=== PATIENT | male | born 1960 | race Caucasian/White ===

== ENCOUNTER 2017-01-21 22:32 | Emergency (ER) | payer BC ==
--- NOTE | ~2017-01-21 | US85 ---
[facility] A Service of [facility] RADIOLOGY TEXT RESULTS PATIENT: FLORECITA HELM LOCATION: SED : 64 UNIT #: [id number] AGE: [address]: Milo Beckwith MD SEX: M ORDER DR: [id number] [place] [id number] E MR#: [id number] Acc #: [id number] NAME: FLORECITA HELM : 1960 SEX: M STUDY DATE/TIME: 01/21/2017 23:22 UNIT: SED ROOM: STUDY DESCRIPTION: [facility] [employer] Attending Physician: Milo Beckwith M.D. Ordering Physician: Milo Beckwith M.D. Primary Care Physician: Rojelio Morgan D.O. MEDICAL IMAGING REPORT This report is preliminary unless electronic signature is present. EXAM Left lower extremity venous Doppler INDICATIONS Left calf pain and swelling today. PROCEDURE badillo-scale, color Doppler, spectral imaging deep veins left leg. COMPARISON None. FINDINGS Deep veins in the left leg compress normally, show normal color Doppler and spectral characteristics. There is a 4.9 x 1.0 x 2.8 cm left popliteal fossa cyst. IMPRESSION 1. No evidence for DVT in the left leg. 2. Popliteal cyst on the left, measuring up to 4.9 cm. 1. Dictated by... Bernardino Espinal M.D. THIS IS AN ELECTRONICALLY VERIFIED REPORT Bernardino Espinal M.D. at 01/22/2017 9:56 PM SHIREEN/nathan TD: 01/22/2017 07:23 JOB #: [id number] MEDICAL IMAGING REPORT [facility] A Service of [facility] RADIOLOGY TEXT RESULTS PATIENT: FLORECITA HELM LOCATION: SED : 64 UNIT #: [id number] AGE: [address]: Milo Beckwith MD SEX: M ORDER DR: Page 1 of 1
[~2017-01-21 22:32] MED LIST: ATORVASTATIN CA80 MG PO; AZITHROMYCIN500 MG PO; BENZONATATE PO; CEFTIN500 MG PO; GLUCOPHAGE500 M1 PO; HCTZ; KEFLEX500 MG PO; LIPITOR80 MG PO; LISINOPRIL; LISINOPRIL20 MG PO; METFORMIN; OMEPRAZOLE20 M2 PO; PROAIR RESPICL90 MCG INH; SUBOXONE 8 MG-1 EAC1 SL; SYMBICORT INH
[2017-01-21 23:14] LABS: BASOPHIL# 0.1 X10e3 (0-0.3); BASOPHIL% 0.6 % (0-2.5); EOSINOPHIL# 0.1 X10e3 (0-0.7); EOSINOPHIL% 1.4 % (0.0-7.0); HEMATOCRIT 39.7 % (38.0-50.0); HEMOGLOBIN 13.1 gm/dL (13.0-16.0); LYMPHOCYTE# 3.2 X10e3 (1.0-3.5); LYMPHOCYTE% 30.6 % (17.0-45.0); MEAN CELL VOLUME 82.2 FL (83-96); MEAN CORPUSCULAR HGB CONC 32.9 g/dL (30-36); MEAN PLATELET VOLUME 7.4 FL (6.5-11.5); MONOCYTE# 0.7 X10e3 (0-1.0); MONOCYTE% 7.1 % (3.0-12.0); NEUTROPHIL# 6.3 X10e3 (1.5-7.1); NEUTROPHIL% 60.3 % (40-75); PLATELET COUNT 290 X10e3 (140-420); RED BLOOD COUNT 4.83 X10e (3.90-5.60); RED CELL DISTRIBUTION WIDTH 15.7 % (11.0-15.5); WHITE BLOOD COUNT 10.5 X10e3 (4.0-10.5)
[2017-01-21 23:15] LABS: DIFF IND NO
[2017-01-21 23:24] LABS: BUN/CREATININE RATIO 13.63; CALCIUM SERUM 8.7 mg/dL (8.4-10.2); CREATININE SERUM 1.1 mg/dL (0.6-1.4); GLOM FILT RATE Estimated 75.7 mL/min (>60); POTASSIUM 3.5 mmol/L (3.5-5.1)
[2017-07-16] MEDS ORDERED: LORTAB 7.5-3251 EACH PO (12:49)
== END 2017-01-22 00:38 | disposition home or self-care (01) ==
LOC: SED 22:32
PROVIDERS: Emergency Medicine
DX: M71.22 Synovial cyst of popliteal space [Baker], left knee (principal); E11.9 Type 2 diabetes mellitus without complications; I10 Essential (primary) hypertension; F17.200 Nicotine dependence, unspecified, uncomplicated; Z90.49 Acquired absence of other specified parts of digestive tract
CPT/HCPCS: 36415; 80048; 85025; 93971; 99284

== ENCOUNTER 2017-06-28 10:27 | Inpatient (IN) | payer BC ==
[~2017-06-28] VITALS: Ht 185.4 cm; Wt 143.2 kg
--- NOTE | ~2017-06-28 | CR4 ---
[facility] A Service of [facility] RADIOLOGY TEXT RESULTS PATIENT: FLORECITA HELM LOCATION: C3A 335- : [birth year] UNIT #: [id number] AGE: [address]: Gracie Adkins MD SEX: M ORDER DR: [id number] [place] [id number] [facility]. [place], [place] [address] [id number] I MR#: [id number] Acc #: [id number] NAME: FLORECITA HELM : 1960 SEX: M STUDY DATE/TIME: 06/29/2017 7:19 UNIT: C3A PCU ROOM: [facility] STUDY DESCRIPTION: CR Abdomen Flat Upright or Dec Attending Physician: Gracie Adkins M.D. Ordering Physician: Rojelio Fraser M.D. Primary Care Physician: Rojelio Morgan D.O. MEDICAL IMAGING REPORT This report is preliminary unless electronic signature is present EXAM Supine and upright AP views of the abdomen COMPARISON CT abdomen and pelvis dated June 28, 2017. INDICATIONS 57-year-old male with right side abdominal pain, nausea and emesis for 2 days. History of diabetes mellitus. FINDINGS NG tube side-port is within the distal esophagus. Advancement is recommended. There is no free subdiaphragmatic air. No acute airspace disease in the lung bases. There are stacked, gas-distended small bowel loops in the right abdomen with abnormal caliber, one of which measures up to 3.6 cm. There is also gas noted within the lumen of the transverse colon and likely in the left colon, as well. IMPRESSION 1. Inadequate position of NG tube, with the side-port in the distal esophagus. Consider advancement. 2. Findings consistent with small bowel obstruction, perhaps with a few, additional dilated small bowel loops as compared to CT of yesterday. There has been some passage of gas into the lumen of the colon suggesting partial small bowel obstruction. Clinical correlation and imaging followup to ensure resolution recommended. No evidence of pneumoperitoneum. 3. Prior cholecystectomy. 4. Degenerative changes of the lower lumbar spine. Actually, findings in the thoracic and lumbar spine could be reflective of ankylosing spondylitis or DISH. STS. [facility] A Service of [facility] RADIOLOGY TEXT RESULTS PATIENT: FLORECITA HELM LOCATION: [facility] 335-01 : [birth year] UNIT #: [id number] AGE: [address]: Gracie Adkins MD SEX: M ORDER DR: Dictated by... Ambrose Alcantara M.D. THIS IS AN ELECTRONICALLY VERIFIED REPORT Ambrose Alcantara M.D. at 06/30/2017 9:04 PM NATALIIA/mick TD: 06/29/2017 10:58 JOB #: [id number] MEDICAL IMAGING REPORT Page 1 of 1 COPY
--- NOTE | ~2017-06-28 | CR4 ---
[facility] A Service of [facility] RADIOLOGY TEXT RESULTS PATIENT: FLORECITA HELM LOCATION: [facility] : [birth year] UNIT #: [id number] AGE: [address]: Gracie Adkins MD SEX: M ORDER DR: [id number] [facility] [address]. [place], [place] [address] [id number] I MR#: [id number] Acc #: [id number] NAME: FLORECITA HELM : 1960 SEX: M STUDY DATE/TIME: 07/05/2017 13:57 UNIT: [facility] ROOM: [facility] STUDY DESCRIPTION: CR Abdomen Flat Upright or Dec Attending Physician: Gracie Adkins M.D. Ordering Physician: Sebastián Solano M.D. Primary Care Physician: Rojelio Mogran D.O. MEDICAL IMAGING REPORT This report is preliminary unless electronic signature is present EXAM Abdomen series 07/05/2017 HISTORY Postop surgery for small bowel obstruction. Persistent postoperative abdominal distension and abdomen pain. Exam for followup. TECHNIQUE Flat and upright abdomen series. FINDINGS The exam shows persistent moderate gaseous distension of small bowel segments throughout the central abdomen, unchanged since yesterday. Midline surgical clips related to recent surgery, reportedly for small bowel obstruction. Air-distended transverse colon is noted. Findings are nonspecific but most likely represent postoperative adynamic ileus. The degree of transverse colon distension has improved slightly since yesterday. No NG tube is present, but there is no visible gastric distension. Dictated by... Shmuel Saunders M.D. THIS IS AN ELECTRONICALLY VERIFIED REPORT Shmuel Saunders M.D. at 07/06/2017 9:50 PM KASH/gracie TD: 07/06/2017 02:29 JOB #: [id number] MEDICAL IMAGING REPORT [facility] A Service of [facility] RADIOLOGY TEXT RESULTS PATIENT: FLORECITA HELM LOCATION: [facility] : 64 UNIT #: [id number] AGE: [address]: Gracie Adkins MD SEX: M ORDER DR: Page 1 of 1 COPY
--- NOTE | ~2017-06-28 | CR4 ---
[facility] A Service of [facility] RADIOLOGY TEXT RESULTS PATIENT: FLORECITA HELM LOCATION: A : [birth year] UNIT #: [id number] AGE: [address]: Gracie Adkins MD SEX: M ORDER DR: [id number] [facility] [address] [facility]. [place], [place] [address] [id number] I MR#: [id number] Acc #: [id number] NAME: FLORECITA HELM : 1960 SEX: M STUDY DATE/TIME: 07/03/2017 8:06 UNIT: C2 ROOM: 219 STUDY DESCRIPTION: CR Abdomen Flat Upright or Dec Attending Physician: Gracie Adkins M.D. Ordering Physician: Rojelio Fraser M.D. Primary Care Physician: Rojelio Morgan D.O. MEDICAL IMAGING REPORT This report is preliminary unless electronic signature is present EXAM Supine and upright views of the abdomen DATE 07/03/2017 HISTORY 57-year-old male postop small bowel obstruction. Now with abdominal pain. Symptoms began 06/28/2017. Shortness of breath. Morbidly obese. COMPARISON Flat and upright views of the abdomen 06/29/2017. CT abdomen and pelvis without contrast 06/28/2017. FINDINGS NG tube has been removed. There is diffuse gaseous distension of both large and small bowel loops. Small bowel within the left side of the abdomen is dilated up to 4 cm. Midline laparotomy lidia are present. No gross free intraperitoneal air is identified on the upright portion of exam. No pneumatosis is seen. Cholecystectomy changes. Imaged lung bases are clear. Mild marginal osteophyte formation in the thoracolumbar spine. IMPRESSION 1. Multiple abnormally dilated large and small bowel loops. In the context of recent midline laparotomy, findings may represent changes of diffuse postoperative ileus. Distal colonic obstruction not excluded but thought less likely. Continued clinical and radiographic followup recommended. 2. No gross free intraperitoneal air is seen. Dictated by... [facility] A Service [facility] RADIOLOGY TEXT RESULTS PATIENT: FLORECITA HELM LOCATION: C2A 219-01 : [birth year] UNIT #: [id number] AGE: [address]: Gracie Adkins MD SEX: M ORDER DR: Argentina Mcfarland M.D. THIS IS AN ELECTRONICALLY VERIFIED REPORT Argentina Mcfarland M.D. at 07/03/2017 5:03 PM DORIS/burak TD: 07/03/2017 14:37 JOB #: [id number] MEDICAL IMAGING REPORT Page 1 of 1 COPY
--- NOTE | ~2017-06-28 | CT4 ---
[facility] A Service of [facility] RADIOLOGY TEXT RESULTS PATIENT: FLORECITA HELM LOCATION: C3A 335-01 : 64 UNIT #: [id number] AGE: [address]: Gracie Adkins MD SEX: M ORDER DR: [id number] [facility] [address]. [place], [place] [address] [id number] E MR#: [id number] Acc #: [id number] NAME: FLORECITA HELM : 1960 SEX: M STUDY DATE/TIME: 06/28/2017 12:00 UNIT: [facility] ROOM: STUDY DESCRIPTION: CT Abd and Pelv Wo Cont Attending Physician: Rafael Hooker M.D. Ordering Physician: Rafael Hooker M.D. Primary Care Physician: Rojelio Morgan D.O. MEDICAL IMAGING REPORT This report is preliminary unless electronic signature is present EXAM CT abdomen and pelvis without IV contrast COMPARISON October 24, 2016; August 27, 2016. INDICATION 57-year-old male with right-sided abdominal pain and emesis today. TECHNIQUE Axial CT imaging of the abdomen and pelvis was performed with IV contrast. Coronal and sagittal reformats were constructed. Lack of IV contrast limits evaluation of adenopathy, vasculature, and viscera. This CT exam was performed with one or more of the following radiation dose reduction techniques: Automatic exposure control, adjustment of mA and/or kV according to patient size, and iterative reconstruction. FINDINGS Tiny fat-containing umbilical hernia. Mild multilevel degenerative facet disease of the lumbar spine. Severe disc height loss with posterior disc osteophyte complex at L5- S1. Posterior protrusion L4-L5. Findings suggestive of DISH versus ankylosing spondylitis in the lower thoracic spine. Minimal calcification of the ascending aorta. Prior cholecystectomy. No abnormalities are seen in the unenhanced liver, pancreas, spleen, adrenal glands or kidneys. No hydronephrosis or hydroureter. No renal or ureteral calculi. Prostate gland unremarkable. Appendix is normal. Abnormal distension of small bowel loops in the abdomen with air-fluid levels. There may be multiple transitional points with short segment narrowing of the distal ileum in the right abdomen in 2 separate locations. There may actually be a third transition point where the distal ileum finally becomes normal uniform caliber throughout and then meets the ileocecal valve. The pancreas is normal. No free fluid or STS. [facility] A Service of [facility] RADIOLOGY TEXT RESULTS PATIENT: FLORECITA HELM LOCATION: C3A 335-01 : [birth year] UNIT #: [id number] AGE: [address]: Gracie Adkins MD SEX: M ORDER DR: pneumoperitoneum. Abdominal aorta is normal in caliber. There are diffuse calcifications of the abdominal aorta without involvement of the main branch vessels. No pneumoperitoneum or free fluid. No evidence of adenopathy. IMPRESSION 1. The patient is post cholecystectomy. The current finding is most consistent with small bowel obstruction with multifocal short segment narrowing of the terminal ileum in the right abdomen likely secondary to adhesive disease. 2. Degenerative changes of the lumbar spine as described in the body of the report. Dictated by... Ambrose Alcantara M.D. THIS IS AN ELECTRONICALLY VERIFIED REPORT Ambrose Alcantara M.D. at 07/01/2017 10:31 AM NATALIIA/carole TD: 06/28/2017 15:48 JOB #: [id number] MEDICAL IMAGING REPORT Page 1 of 1 COPY
--- NOTE | ~2017-06-28 | OR ---
Unit #: [id number] #: [id number] Patient: FLORECITA HELM [id number] [address] [place], [place] [address] [id number] I MR#: [id number] NAME: FLORECITA HELM ROOM: [facility] Date of Procedure: 06/30/2017 Admission Date: 06/28/2017 Surgeon: Rojelio Fraser M.D. : 1960 Attending Physician: Gracie Adkins M.D. Primary Care Physician: Rojelio Morgan D.O. OPERATIVE REPORT PREOPERATIVE DIAGNOSES Small-bowel obstruction, incidental umbilical hernia, suspicious skin lesion left lower quadrant of the abdominal wall. POSTOPERATIVE DIAGNOSES Small-bowel obstruction, incidental umbilical hernia, suspicious skin lesion left lower quadrant of the abdominal wall. PROCEDURES PERFORMED Exploratory laparotomy, lysis of adhesions, repair of umbilical hernia, and excision of suspicious skin lesion left lower quadrant abdominal wall. ANESTHESIA General endotracheal anesthesia. ESTIMATED BLOOD LOSS Less than 10 mL. INDICATIONS FOR PROCEDURE Mr. Samuels is a 57-year-old gentleman presented to the ER with a 24-hour history of abdominal distention, nausea, vomiting, and decreased output of stool and flatus. CT scan was concerning for a small-bowel obstruction with a transition zone in several areas in the right lower quadrant and followup x-rays confirmed persistent evidence of small-bowel obstruction. DESCRIPTION OF PROCEDURE The patient was transported from his hospital room to the operating room, and after induction of general endotracheal anesthesia, he received 3 g of Kefzol IV. Abdominal wall hair was clipped, and he was prepped and draped in usual sterile fashion. The patient already had an NG tube, Dawkins catheter, and SCDs. After being prepped and draped, a midline incision was made. I dissected down through the soft tissue and entered into the peritoneal cavity through the linea alba. On evaluation of the abdomen, he had dilated proximal small bowel. As I followed the bowel down to the right lower quadrant, there was an area of the ileum that was sort of S-shape or accordion shape that was adhesed down in the pelvis. The bowel at this site was not completely obstructed, but certainly it was of a much smaller caliber than the proximally more dilated bowel. These adhesions were all taken down by sharp and cautery dissection and I straighten the terminal ilium as it entered into the cecum. I palpated the cecum in the ascending colon. No palpable masses were noted. I then ran the bowel from the ileocecal valve to ligament of Treitz. There were no other Unit #: [id number] #: [id number] Patient: FLORECITA HELM adhesions or abnormalities of the bowel. There was resumption of peristalsis and the distal terminal ileum was patent. In palpating the rest of the colon, no abnormalities could be felt. Liver was normal, gallbladder was absent. We placed the bowel back in the anatomic position, pulled the omentum over the bowel. I palpated the stomach and the NG tube was in the distal esophagus. We pushed the NG tube well into the stomach, completely decompressed the stomach. Because the amount of discomfort he was having and the lack of need for a resection of the bowel, after his anesthetic as had been completed, we will remove his NG tube. The patient had an incidental umbilical hernia with a 1 cm defect. There had been some omentum in the defect that we pulled out as we were opening the abdomen and a single nwyemv-ad-itrsz stitch was used to close the fascia at the umbilicus. The midline fascia was then closed with multiple interrupted #1 Vicryl sutures. Once the fascia was closed, I irrigated the soft tissue with saline and Betadine and closed the skin with sterile skin lidia. The suspicious skin lesion left lower quadrant was excised and sent to the laboratory. I obtained hemostasis and placed a dressing of Neosporin and a bandage. Sponges and needle counts were correct x3. An island dressing was placed over the midline incision. The patient tolerated the procedure well and was transported to recovery in stable condition. Findings and postoperative expectations were discussed with his . Dictated by... Julian Klein/luigi TD: 06/30/2017 11:13 JOB #: [id number] OPERATIVE REPORT Page 1 of 1 X Rojelio Fraser MD PROCEDURE OPERATIVE NOTE
--- NOTE | ~2017-06-28 | CO ---
Unit #: [id number] #: [id number] Patient: FLORECITA MCDERMOTT [id number] [address] [place], [place] [address] [id number] I MR#: [id number] NAME: FLORECITA MCDERMOTT ROOM: [facility] Age: 57 Sex: M Admission Date: 06/28/2017 : 1960 Attending Physician: Gracie Adkins M.D. Primary Care Physician: Rojelio Morgan D.O. Consultation Date: 06/28/2017 CONSULTATION REPORT HISTORY OF PRESENT ILLNESS Mr. Mcdermott is a 57-year-old gentleman with a history of hypertension and diabetes, who over the last 5 days has had some nonspecific low-grade right-sided abdominal pain radiating into the right flank. He denied any fever, chills, or hematuria, but the pain has progressed over the last 24 hours and over the last 8 hours, he has had multiple episodes of nonbloody vomiting. During that time, he has had minimal stool and flatus. He denied any hematemesis, hematochezia, or melena. He does describe his urine as being dark, but not with any blood. His only previous abdominal surgery has been laparoscopic cholecystectomy and he denies a prior history of any gastrointestinal disease or a family history of any gastrointestinal disease. He has not had a colonoscopy. PAST MEDICAL HISTORY Diabetes, hypertension, hyperlipidemia, hypercholesterolemia. He has had previous tonsillectomy and adenoidectomy and a laparoscopic cholecystectomy. ALLERGIES No allergies to medication. MEDICATIONS Include hydrochlorothiazide, Zestril, Lipitor, and Glucophage. FAMILY HISTORY He is unaware of any chronic or inheritable diseases. SOCIAL HISTORY He smokes, but denies use of alcohol or recreational drugs. REVIEW OF SYSTEMS No fever, chills, or night sweats. No hematemesis, hematochezia, melena. No weight loss. No family history of inflammatory bowel disease. PHYSICAL EXAMINATION VITAL SIGNS: Temperature is 97.5, pulse 65, respirations 13, blood pressure 140/92. HEENT: No scleral icterus. CARDIAC: Regular rhythm without murmur. LUNGS: Clear anteriorly. ABDOMEN: Distended. He guards along the right abdomen, particularly in the right mid abdomen radiating to the right flank. There is no mass or rebound tenderness. He does have a small reducible umbilical hernia. EXTREMITIES: No edema. Unit #: [id number] #: [id number] Patient: FLORECITA MCDERMOTT NEUROLOGIC: Grossly intact. SKIN: No skin rashes or lesions. DIAGNOSTIC STUDIES LABORATORY RESULTS: Comprehensive metabolic panel shows a potassium of 3.4, otherwise it is within normal limits. Lipase was 23 and lactic acid was 0.8. Hemoglobin 14.9, white count 18,600 with an unremarkable differential, platelets 414,000. There is no urinalysis but it has been ordered. IMAGING STUDIES: CT scan voice clip describes a small bowel obstruction with a transition point in the distal ileum. They could not be certain of the etiology, but think it may be related to adhesions. No other significant findings. ASSESSMENT AND PLAN The patient presents with abdominal pain, nausea and vomiting and on CT, there was a possible small bowel obstruction. The patient needs hydration and repletion of his potassium and we will check a magnesium level. I will stimulate his bowel and repeat his abdominal x-rays in the morning. We will start with a conservative evaluation and approach to this as the patient has low risk factors for small bowel obstruction and no evidence of sepsis. I discussed with him however that he may end up coming to surgery for exploration and release of the small-bowel obstruction whether it involves adhesiolysis or bowel resection. The patient understands and agrees to proceed. Dictated by... Julian Klein/luigi TD: 06/28/2017 23:17 JOB #: [id number] CONSULTATION REPORT Page 1 of 1 X Rojelio Fraser MD X CONSULTATION REPORT
--- NOTE | ~2017-06-28 | DS ---
Unit #: [id number] #: [id number] Patient: FLORECITA HELM [id number] [address] [address] [id number] I MR#: [id number] NAME: FLORECITA HELM ROOM: 219 Age: 57 Sex: M Admission Date: 06/28/2017 : 1960 Discharge Date: 07/07/2017 Attending Physician: Gracie Adkins M.D. Primary Care Physician: Rojelio Morgan D.O. DISCHARGE SUMMARY Please refer to my discharge summary dictated from 07/04/2017 for initial part of hospital stay. After, the patient was deciding to leave AMA. His came in Sunday and he underwent continued conservative management in regard to his partial small bowel obstruction and/or ileus. This morning, the patient was ultimately cleared by surgical associates as he had been having positive bowel movements fluctuance as well repair to his ileus had resolved. At this point in time, the patient is stable for discharge home. He was recommended to follow up with [facility] services in approximately 10 days, Dr. Cueto and associates. FINAL DISCHARGE DIAGNOSES 1. Small-bowel obstruction, status post lysis of adhesions. 2. Postoperative ileus, now resolved. 3. History of hypertension. 4. Hyperlipidemia. 5. Diabetes. 6. Obesity. FINAL DISCHARGE MEDICATIONS Glucophage 500 mg p.o. q.a.m., Tylenol 650 mg p.o. q.6 p.r.n., Lipitor 80 mg p.o. daily, hydrochlorothiazide 25 mg p.o. daily, Zestril 20 mg p.o. daily. DISCHARGE CONDITION Stable. DISCHARGE DISPOSITION Home. FOLLOWUP Follow up PCP in 7 to 10 days. Dictated by... Julian GuevaraN/luigi TD: 07/09/2017 18:50 JOB #: [id number] Unit #: [id number] #: [id number] Patient: FLORECITA HELM DISCHARGE SUMMARY Page 1 of 1 X Gracie Adkins MD X DISCHARGE SUMMARY
--- NOTE | ~2017-06-28 | HP ---
Unit #: [id number] #: [id number] Patient: FLORECITA HELM [id number] [address] [place], [place] [address] [id number] MR#: [id number] NAME: FLORECITA HELM ROOM: Age: 57 Sex: M Admission Date: 06/28/2017 : 1960 Attending Physician: Rafael Hooker M.D. Primary Care Physician: Rojelio Morgan D.O. HISTORY AND PHYSICAL CHIEF COMPLAINT Nausea and vomiting. HISTORY OF PRESENT ILLNESS The patient is a 57-year-old male with a past medical history of hypertension, hyperlipidemia, diabetes brought to the emergency room complaining of the nausea and vomiting. The patient stated it started yesterday afternoon associated with abdominal distention. The patient had a CT of the abdomen and pelvis that showed a small bowel obstruction, and the patient has been admitted for the above reasons. The patient had a cholecystectomy 10 years ago and denies any other abdominal procedures. The patient had last bowel movement yesterday. The patient denies any fever, chills, cough, or shortness of breath. PAST MEDICAL HISTORY 1. History of hypertension. 2. Hyperlipidemia. 3. Diabetes. PAST SURGICAL HISTORY 1. Tonsillectomy. 2. Cholecystectomy. HOME MEDICATIONS 1. Hydrochlorothiazide. 2. Zestril. 3. Lipitor. 4. Glucophage. SOCIAL HISTORY Smokes pack of cigarettes daily. Denies alcohol and illicit drug abuse. FAMILY HISTORY Reviewed and none. REVIEW OF SYSTEMS Positive for nausea and vomiting. Positive for the abdominal distention. Denies chest pain. Denies cough. Denies shortness of breath. All other systems have been reviewed and are negative unless otherwise mentioned in the HPI. PHYSICAL EXAMINATION GENERAL: Patient is lying on the bed, not in acute distress. VITAL SIGNS: Temperature 97.5, pulse 77, respiratory rate 18, blood Unit #: [id number] #: [id number] Patient: FLORECITA HELM pressure 136/88, saturating 98% on room air. HEENT: Head: Atraumatic, normocephalic. Pupils equal, round, and reactive to light and accommodation. Extraocular movements are intact. Dry mucous membranes. NECK: Supple. No tenderness. LUNGS: Decreased air entry at the bases. HEART: Regular rate and rhythm. ABDOMEN: Soft and distended. Decreased bowel sounds. EXTREMITIES: No cyanosis. No clubbing. NEUROLOGIC: Alert, awake, oriented. No gross focal motor deficits. PSYCHIATRIC: Mood and affect are appropriate. DIAGNOSTIC STUDIES LABORATORY: Sodium 137, potassium 3.4, chloride 95, bicarbonate 32, glucose 138, BUN 16, creatinine 1.4, calcium 9.6. AST 23, ALT 24, alkaline phosphatase 90, albumin 4.7, lipase 23. WBC 18.6, hemoglobin 14.9, hematocrit 45.3, platelets 414,000, neutrophils 85%. IMAGING: CT of the abdomen and pelvis shows a small bowel obstruction at the level of the terminal ileum secondary to the adhesions. ASSESSMENT 1. Small bowel obstruction. 2. Nausea and vomiting. 3. Hypokalemia. PLAN Plan to admit the patient to inpatient to telemetry. Continue with IV fluids at D5 (1) mL/hr. Continue with the bowel rest, NPO except ice chips. Will have LSA consult for the small bowel obstruction. Continue with NG suctioning and replace the potassium per protocol. Continue with low-dose sliding scale and Accu-Cheks a.c. and at bedtime. Nicotine patch for the smoking cessation. Further recommendations will follow as more lab results are available. Dictated by Julian Swenson/rita TD: 06/28/2017 14:25 JOB #: [id number] HISTORY AND PHYSICAL Page 1 of 1 X HALINA AVILA MD X HISTORY AND PHYSICAL
--- NOTE | ~2017-06-28 | CR4 ---
[facility] A Service of [facility] & [facility] RADIOLOGY TEXT RESULTS PATIENT: FLORECITA HELM LOCATION: C2A : 64 UNIT #: [id number] AGE: [address]: Gracie Adkins MD SEX: M ORDER DR: [id number] [facility] [address]. [place], [place] [address] [id number] MR#: [id number] Acc #: [id number] NAME: FLORECITA HELM : 1960 SEX: M STUDY DATE/TIME: 07/04/2017 7:49 UNIT: C2 ROOM: 219 STUDY DESCRIPTION: CR Abdomen Flat Upright or Dec Attending Physician: Gracie Adkins M.D. Ordering Physician: Sebastián Solano M.D. Primary Care Physician: Rojelio Morgan D.O. MEDICAL IMAGING REPORT This report is preliminary unless electronic signature is present EXAM Abdomen series 07/04/2017. HISTORY Postop surgery for small bowel obstruction. Abdomen pain and vomiting. Follow up bowel dilatation. TECHNIQUE Flat and upright abdomen series. FINDINGS Surgical clips are superimposed over the low midline abdomen following reported surgery for small bowel obstruction. Moderately large volume air throughout mildly dilated small bowel without significant change since yesterday. Today, there is considerably larger volume air within moderately distended nondependent transverse colon. The findings likely represent postoperative adynamic ileus with predominant accumulation of air within the nondependent transverse colon. Continued follow up recommended. No visible postoperative free air. No NG tube is present, but the stomach appears nondistended. IMPRESSION 1. Postop abdominal surgery for small bowel obstruction. 2. Mild small bowel dilatation with moderate distension of air-filled transverse colon. Postoperative adynamic ileus is suspected. Recommend continued follow up. STAT * RESULT Dictated by... Shmuel Saunders M.D. [facility] A Service of [facility] RADIOLOGY TEXT RESULTS PATIENT: FLORECITA HELM LOCATION: [facility] 219-01 : [birth year] UNIT #: [id number] AGE: [address]: Gracie Adkins MD SEX: M ORDER DR: THIS IS AN ELECTRONICALLY VERIFIED REPORT Shmuel Saunders M.D. at 07/04/2017 5:13 PM Larry TD: 07/04/2017 12:18 JOB #: [id number] MEDICAL IMAGING REPORT Page 1 of 1 COPY
--- NOTE | ~2017-06-28 | DS ---
Unit #: [id number] #: [id number] Patient: FLORECITA HELM [id number] [address] [place], [place] [address] [id number] MR#: [id number] NAME: FLORECITA HELM ROOM: 219 Age: 57 Sex: M Admission Date: 06/28/2017 : 1960 Discharge Date: Attending Physician: Gracie Adkins M.D. Primary Care Physician: Rojelio Morgan D.O. DISCHARGE SUMMARY HISTORY OF PRESENT ILLNESS/HOSPITAL COURSE The patient is a 57-year-old very pleasant male with a prior history of hypertension, hyperlipidemia, diabetes, who initially presented secondary to nausea and vomiting. He also presented with associated abdominal distention. He underwent a CT of abdomen and pelvis, which showed small bowel obstruction and he was admitted secondary to above. We placed consultation to [facility] for evaluation. Initially conservative management was initiated with NG tube placement, however, the patient's exam worsened, and therefore, decision was made for exploratory laparotomy, lysis of adhesions, repair of umbilical hernia at the same time as well. This was carried out on 06/30/[address] Fraser. Please see his procedure note for complete details. The patient was placed on appropriate medications. He was gradually transitioned off NG tube and it clears where initially started, however, he regressed. He appeared to develop acute postoperative ileus, which was seen on followup by KUB, abdomen x-rays on 07/03/2017. NG-tube was recommended to be reinserted, which he pulled out. This morning, his abdomen exam appears to be distended, however, he states that he wishes to leave against medical advice. He was extensively counseled on staying as well as follow up in regard to his abdominal KUB and/or resolution of the ileus prior to discharge. However, he states he wishes to go home, he feels just fine. I tried to juvenile counselor him on numerous occasions, also notifying him that at the time of discharge his creatinine is now elevated at 1.5 likely representing acute kidney injury and his white count is also elevated at 17.8, however, he states that he wishes to go home. FINAL DISCHARGE DIAGNOSES 1. Small-bowel obstruction, status post exploratory laparotomy with lysis of adhesions. 2. Presumed postoperative ileus. 3. Morbid obesity. 4. Hypertension. 5. Hyperlipidemia. DISCHARGE MEDICATIONS Unknown. The patient has elected to leave against medical advice. OVERALL DISPOSITION Unit #: [id number] #: [id number] Patient: FLORECITA HELM Home. OVERALL PROGNOSIS Poor/guarded. Dictated by... Julian Guevara/luigi TD: 07/05/2017 17:56 JOB #: [id number] DISCHARGE SUMMARY Page 1 of 1 X Gracie Adkins MD X DISCHARGE SUMMARY
--- NOTE | ~2017-06-28 | BMI ---
[facility] Nutrition Therapy DATE: 06/29/17 Patient: FLORECITA HELM Physician: HIPOLITO Address: [address] [place] [address] Room/Bed: [address] [place] [address], Zip: [place] [address] Admit Date: 06/28/17 Date of : 64 Height: 6 1 Weight: 315 143.2 HIGH BMI NOTE: Admitting DX: Pt is a 57 y/o male admitted with vomitting ANTHROPOMETRICS: HT: 73" WT: 315# (143 KG), BMI: 41.6 IBW: 184# %IBW: 171% DIET: NPO RECOMMENDATIONS: Once medically feasible, advance diet as indicated to Consistent Carbohydrate + Healthy Heart to promote gradual weight loss towards a healthy BMI (19.0-25.0) or +/- 10% IBW. RD will follow-up per protocol. Respectfully, Roxy Rojas, Survey Chief Vazquez David, MS, RD, LD [facility] cc: client file
--- NOTE | ~2017-06-28 | EKG ---
PATIENT: FLORECITA HELM UNIT #: [id number] Ventricular Rate: 74 BPM Atrial Rate: 74 BPM P-R Interval: 188 ms QRS Duration: 104 ms Q-T Interval: 418 ms QTC Calculation(Bezet): 463 ms P Gueydan: 36 degrees Calculated R Gueydan: 25 degrees Calculated T Gueydan: 43 degrees Diagnosis Line: Normal sinus rhythm Diagnosis Line: Incomplete right bundle branch block Diagnosis Line: Otherwise normal ECG Diagnosis Line: When compared with ECG of 27-AUG-2016 04:33, Diagnosis Line: No significant change was found Diagnosis Line: Confirmed by DEIRDRE ANDRES MD ([id number]) on 07/01/2017 Diagnosis Line: 11:00:37 PM INTERPRETING MD: MCKENNA SENA
[2017-06-28 11:51] LABS: BASOPHIL% 0.2 % (0-2.5); EOSINOPHIL% 0.1 % (0.0-7.0); HEMATOCRIT 45.3 % (38.0-50.0); HEMOGLOBIN 14.9 gm/dL (13.0-16.0); LYMPHOCYTE# 2.9 X10e3 (1.0-3.5); LYMPHOCYTE% 15.8 % (17.0-45.0); MEAN CELL VOLUME 84.9 FL (83-96); MEAN CORPUSCULAR HEMOGLOBIN 27.9 PG (28-34); MEAN CORPUSCULAR HGB CONC 32.8 g/dL (30-36); MEAN PLATELET VOLUME 7.6 FL (6.5-11.5); MONOCYTE# 1.3 X10e3 (0-1.0); MONOCYTE% 6.8 % (3.0-12.0); NEUTROPHIL# 14.4 X10e3 (1.5-7.1); NEUTROPHIL% 77.1 % (40-75); PLATELET COUNT 414 X10e3 (140-420); RED BLOOD COUNT 5.34 X10e (3.90-5.60); RED CELL DISTRIBUTION WIDTH 14.7 % (11.0-15.5); WHITE BLOOD COUNT 18.6 X10e3 (4.0-10.5)
[2017-06-28 11:52] LABS: DIFF IND YES
[2017-06-28 12:09] LABS: ALBUMIN SERUM 4.7 g/dL (3.5-5.0); BILIRUBIN, DIRECT 0.1 mg/dL (0.0-0.2); BILIRUBIN,INDIRECT 0.4 mg/dL (0.0-0.9); BILIRUBIN,TOTAL 0.5 mg/dL (0.2-2.0); BUN/CREATININE RATIO 11.42; CALCIUM SERUM 9.6 mg/dL (8.4-10.2); CREATININE SERUM 1.4 mg/dL (0.6-1.4); GLOM FILT RATE Estimated 56.2 mL/min (>60); POTASSIUM 3.4 mmol/L (3.5-5.1)
[2017-06-28 12:47] LABS: PLATELET ESTIMATE NORMAL (NORMAL)
[2017-06-28] MEDS ORDERED: HYDROCHLOROTHIA25 MG PO (13:32)
[2017-06-28] MEDS ORDERED: LISINOPRIL PO (13:32)
[2017-06-28] MEDS ORDERED: METFORMIN PO (13:32)
[2017-06-28] MEDS ORDERED: PATIENT'S PHARMACY (13:32)
[2017-06-28] MEDS ORDERED: ATORVASTATIN CA80 MG PO (13:32)
[2017-06-29 05:46] LABS: HEMATOCRIT 38.9 % (38.0-50.0); MEAN CELL VOLUME 85.8 FL (83-96); MEAN CORPUSCULAR HEMOGLOBIN 28.2 PG (28-34); MEAN CORPUSCULAR HGB CONC 32.9 g/dL (30-36); MEAN PLATELET VOLUME 7.4 FL (6.5-11.5); RED BLOOD COUNT 4.53 X10e (3.90-5.60); RED CELL DISTRIBUTION WIDTH 15.2 % (11.0-15.5); WHITE BLOOD COUNT 12.1 X10e3 (4.0-10.5)
[2017-06-29 05:54] LABS: HEMOGLOBIN 12.8 gm/dL (13.0-16.0)
[2017-06-29 07:04] LABS: BUN/CREATININE RATIO 11.42; CALCIUM SERUM 8.3 mg/dL (8.4-10.2); CREATININE SERUM 1.4 mg/dL (0.6-1.4); GLOM FILT RATE Estimated 56.2 mL/min (>60); MAGNESIUM 2.4 mg/dL (1.6-3.0); PHOSPHOROUS 2.9 mg/dL (2.5-4.6); POTASSIUM 3.9 mmol/L (3.5-5.1)
[2017-06-29 10:04] LABS: URINE SOURCE CLEAN CATCH
[2017-06-29 10:15] LABS: URINE APPEARANCE CLEAR; URINE BLOOD 1+ (NEG); URINE COLOR DK YELLOW; URINE GLUCOSE NEG (NEG); URINE KETONE TRACE (NEG); URINE LEUKOCYTE ESTERASE TRACE (NEG); URINE NITRATE NEG (NEG); URINE PH 6.5 (5-8); URINE PROTEIN 1+ (NEG); URINE SPECIFIC GRAVITY 1.031 (1.003-1.035)
[2017-06-29 10:18] LABS: URBCS1 AUWI 25-50 /[HPF] (0-2); URINE BACTERIA AUWI NEG (NEGATIVE); URINE SQUAMOUS EPITHELIAL CELL OCC /[HPF]; UWBCS1 AUWI 0-2 (0-5)
[2017-06-29 10:26] LABS: CULTURE INDICATED? NO; URINE BILIRUBIN NEG (NEG)
[2017-06-30 05:51] LABS: HEMATOCRIT 39.5 % (38.0-50.0); MEAN CELL VOLUME 85.5 FL (83-96); MEAN CORPUSCULAR HEMOGLOBIN 28.1 PG (28-34); MEAN CORPUSCULAR HGB CONC 32.8 g/dL (30-36); MEAN PLATELET VOLUME 7.4 FL (6.5-11.5); RED BLOOD COUNT 4.62 X10e (3.90-5.60); RED CELL DISTRIBUTION WIDTH 14.7 % (11.0-15.5); WHITE BLOOD COUNT 12.1 X10e3 (4.0-10.5)
[2017-06-30 06:15] LABS: CALCIUM SERUM 8.4 mg/dL (8.4-10.2); CREATININE SERUM 1.2 mg/dL (0.6-1.4); GLOM FILT RATE Estimated 67.7 mL/min (>60); MAGNESIUM 2.2 mg/dL (1.6-3.0); PHOSPHOROUS 2.7 mg/dL (2.5-4.6); POTASSIUM 3.6 mmol/L (3.5-5.1)
[2017-07-01 05:52] LABS: HEMATOCRIT 44.1 % (38.0-50.0); HEMOGLOBIN 14.4 gm/dL (13.0-16.0); MEAN CELL VOLUME 86.1 FL (83-96); MEAN CORPUSCULAR HGB CONC 32.5 g/dL (30-36); MEAN PLATELET VOLUME 7.1 FL (6.5-11.5); RED BLOOD COUNT 5.12 X10e (3.90-5.60); RED CELL DISTRIBUTION WIDTH 14.8 % (11.0-15.5); WHITE BLOOD COUNT 13.4 X10e3 (4.0-10.5)
[2017-07-01 06:43] LABS: CALCIUM SERUM 8.3 mg/dL (8.4-10.2); CREATININE SERUM 1.1 mg/dL (0.6-1.4); GLOM FILT RATE Estimated 75.2 mL/min (>60); MAGNESIUM 2.2 mg/dL (1.6-3.0); PHOSPHOROUS 3.8 mg/dL (2.5-4.6); POTASSIUM 4.2 mmol/L (3.5-5.1)
[2017-07-02 07:31] LABS: BASOPHIL# 0.1 X10e3 (0-0.3); BASOPHIL% 0.5 % (0-2.5); EOSINOPHIL# 0.1 X10e3 (0-0.7); EOSINOPHIL% 0.4 % (0.0-7.0); HEMATOCRIT 40.4 % (38.0-50.0); HEMOGLOBIN 13.6 gm/dL (13.0-16.0); LYMPHOCYTE# 2.9 X10e3 (1.0-3.5); MEAN CELL VOLUME 84.6 FL (83-96); MEAN CORPUSCULAR HEMOGLOBIN 28.5 PG (28-34); MEAN CORPUSCULAR HGB CONC 33.7 g/dL (30-36); MEAN PLATELET VOLUME 7.3 FL (6.5-11.5); MONOCYTE# 1.4 X10e3 (0-1.0); MONOCYTE% 8.3 % (3.0-12.0); NEUTROPHIL# 12.5 X10e3 (1.5-7.1); NEUTROPHIL% 73.8 % (40-75); PLATELET COUNT 336 X10e3 (140-420); RED BLOOD COUNT 4.77 X10e (3.90-5.60); RED CELL DISTRIBUTION WIDTH 14.2 % (11.0-15.5); WHITE BLOOD COUNT 16.9 X10e3 (4.0-10.5)
[2017-07-02 07:33] LABS: DIFF IND NO
[2017-07-02 08:23] LABS: BUN/CREATININE RATIO 11.53; CALCIUM SERUM 8.7 mg/dL (8.4-10.2); CREATININE SERUM 1.3 mg/dL (0.6-1.4); GLOM FILT RATE Estimated 61.4 mL/min (>60); MAGNESIUM 2.3 mg/dL (1.6-3.0); POTASSIUM 3.5 mmol/L (3.5-5.1)
[2017-07-03 06:45] LABS: HEMATOCRIT 40.7 % (38.0-50.0); HEMOGLOBIN 13.4 gm/dL (13.0-16.0); MEAN CELL VOLUME 84.8 FL (83-96); MEAN CORPUSCULAR HGB CONC 33.1 g/dL (30-36); MEAN PLATELET VOLUME 7.6 FL (6.5-11.5); RED BLOOD COUNT 4.79 X10e (3.90-5.60); RED CELL DISTRIBUTION WIDTH 14.2 % (11.0-15.5)
[2017-07-03 07:22] LABS: CALCIUM SERUM 8.9 mg/dL (8.4-10.2); CREATININE SERUM 1.2 mg/dL (0.6-1.4); GLOM FILT RATE Estimated 67.7 mL/min (>60); MAGNESIUM 2.3 mg/dL (1.6-3.0); POTASSIUM 3.4 mmol/L (3.5-5.1)
[2017-07-04 05:41] LABS: HEMATOCRIT 44.3 % (38.0-50.0); HEMOGLOBIN 14.4 gm/dL (13.0-16.0); MEAN CELL VOLUME 84.9 FL (83-96); MEAN CORPUSCULAR HEMOGLOBIN 27.7 PG (28-34); MEAN CORPUSCULAR HGB CONC 32.6 g/dL (30-36); MEAN PLATELET VOLUME 7.6 FL (6.5-11.5); RED BLOOD COUNT 5.22 X10e (3.90-5.60); RED CELL DISTRIBUTION WIDTH 14.3 % (11.0-15.5); WHITE BLOOD COUNT 17.8 X10e3 (4.0-10.5)
[2017-07-04 06:22] LABS: BUN/CREATININE RATIO 18.66; CALCIUM SERUM 9.2 mg/dL (8.4-10.2); CREATININE SERUM 1.5 mg/dL (0.6-1.4); GLOM FILT RATE Estimated 51.7 mL/min (>60); MAGNESIUM 2.6 mg/dL (1.6-3.0); PHOSPHOROUS 4.3 mg/dL (2.5-4.6)
[2017-07-05 06:00] LABS: HEMOGLOBIN 13.4 gm/dL (13.0-16.0); MEAN CORPUSCULAR HEMOGLOBIN 27.8 PG (28-34); MEAN CORPUSCULAR HGB CONC 32.7 g/dL (30-36); MEAN PLATELET VOLUME 7.3 FL (6.5-11.5); RED BLOOD COUNT 4.82 X10e (3.90-5.60); RED CELL DISTRIBUTION WIDTH 13.9 % (11.0-15.5); WHITE BLOOD COUNT 14.7 X10e3 (4.0-10.5)
[2017-07-05 07:17] LABS: BUN/CREATININE RATIO 14.37; CALCIUM SERUM 8.7 mg/dL (8.4-10.2); CREATININE SERUM 1.6 mg/dL (0.6-1.4); GLOM FILT RATE Estimated 47.8 mL/min (>60); MAGNESIUM 2.8 mg/dL (1.6-3.0); POTASSIUM 3.2 mmol/L (3.5-5.1)
[2017-07-06 06:41] LABS: MAGNESIUM 2.5 mg/dL (1.6-3.0); POTASSIUM 4.2 mmol/L (3.5-5.1)
[2017-07-06 21:26] LABS: URINE APPEARANCE CLEAR; URINE BILIRUBIN NEG (NEG); URINE BLOOD 2+ (NEG); URINE COLOR YELLOW; URINE GLUCOSE NEG (NEG); URINE KETONE NEG (NEG); URINE LEUKOCYTE ESTERASE NEG (NEG); URINE NITRATE NEG (NEG); URINE PH 7.5 (5-8); URINE PROTEIN NEG (NEG); URINE SPECIFIC GRAVITY 1.018 (1.003-1.035); URINE UROBILINOGEN 0.2 MG/DL (NEG)
[2017-07-06 21:30] LABS: U HYALINE CASTS AUWI 0-2 /[LPF]; URBCS1 AUWI 25-50 /[HPF] (0-2); URINE BACTERIA AUWI NEG (NEGATIVE); URINE SQUAMOUS EPITHELIAL CELL NONE SEEN /[HPF]; UWBCS1 AUWI 0-2 (0-5)
[2017-07-06 21:32] LABS: CULTURE INDICATED? NO
[2017-07-07 06:00] LABS: BUN/CREATININE RATIO 10.83; CALCIUM SERUM 8.3 mg/dL (8.4-10.2); CREATININE SERUM 1.2 mg/dL (0.6-1.4); GLOM FILT RATE Estimated 67.7 mL/min (>60); MAGNESIUM 1.9 mg/dL (1.6-3.0); POTASSIUM 4.2 mmol/L (3.5-5.1)
[2017-07-07] MEDS ORDERED: TYL325 PO (10:16)
[2017-07-07] MEDS ORDERED: ANTI GAS PO (10:17)
[2017-07-16] MEDS ORDERED: LORTAB 7.5-3251 EACH PO (12:49)
[2017-07-18] MEDS ORDERED: NICOTINE TRANSD14 MG TOP (14:46)
[2017-07-18] MEDS ORDERED: ZOFRAN ODT4 MG PO (14:46)
== END 2017-07-07 10:55 | disposition home or self-care (01) | DRG 336 ==
LOC: CED 10:27 → C3A PCU 13:45 → C2A 13:45 → C3A PCU 16:46 → CED 16:46 → C3A PCU 16:54 → C2A 07-01 16:56
PROVIDERS: Emergency Medicine; Family Medicine; Specialist; Surgery
PROC: 0DN80ZZ Release Small Intestine, Open Approach (ICD-10-PCS; principal; 2017-06-30 07:30)
PROC: 0WQF0ZZ Repair Abdominal Wall, Open Approach (ICD-10-PCS; 2017-06-30 07:30)
PROC: 0HB7XZZ Excision of Abdomen Skin, External Approach (ICD-10-PCS; 2017-06-30 07:30)
DX: K56.5 Intestinal adhesions [bands] with obstruction (postinfection) (principal); Z68.41 Body mass index [BMI] 40.0-44.9, adult; I10 Essential (primary) hypertension; D23.5 Other benign neoplasm of skin of trunk; K42.9 Umbilical hernia without obstruction or gangrene; K56.7 Ileus, unspecified; E78.5 Hyperlipidemia, unspecified; E11.9 Type 2 diabetes mellitus without complications; Z79.84 Long term (current) use of oral hypoglycemic drugs; Z90.49 Acquired absence of other specified parts of digestive tract; E87.6 Hypokalemia; E66.01 Morbid (severe) obesity due to excess calories
CPT/HCPCS: 36415; 74020; 74176; 80048; 80076; 81003; 82947; 83036; 83605; 83690; 83735; 84100; 84132; 84443; 85025; 85027; 87086; 88305; 93005; 94010; 94760; 96361; 96374; 96375; 99285; J0131; J0330; J0360; J0690; J1650; J1815; J1885; J2060; J2250; J2270; J2405; J2550; J2710; J2765; J3010; J3475